=== PATIENT | male | born 1975 | race Caucasian/White ===

== ENCOUNTER 2022-07-03 08:49 | Day surgery (SDC) | payer BC ==
[2022-06-30 12:24] LABS: Absolute Lymphocytes (CBC) 2.7 K/uL (0.7-4.9); Hematocrit 39.3 % (39.6-49.0); Lymphocytes % 35.2 % (15.3-44.8); MCV 90.7 fL (80-100); MPV 7.5 fL (7.6-11.3); RBC Red Blood Cell Count 4.33 M/uL (4.33-5.43)
[2022-06-30 12:36] LABS: Potassium 4.1 mmol/L (3.5-5.1)
--- NOTE | 2022-06-30 12:42 | RAD REPORT ---
EXAM DESCRIPTION: Alissa De Paz And Lat (2 Views)06/30/2022 12:36 pm CLINICAL HISTORY: Preop for neck surgery. Lymphoma COMPARISON: None FINDINGS: The lungs appear clear of acute infiltrate. The heart is normal size IMPRESSION: No acute abnormalities displayed
[2022-07-03] MEDS ORDERED: CELECOXIB 100 MG CAPSULE ONE (09:19)
[2022-07-03] MEDS ORDERED: ACETAMINOPHEN 500 MG TAB ONE (09:19)
[2022-07-03] MEDS: Ringers Lactate 1,000 ML IV ONE ×2 (09:25→09:52)
[2022-07-03] MEDS: CEFAZOLIN SODIUM 1 GM/VIAL ONE ×2 (09:52→10:40)
[2022-07-03] MEDS ORDERED: MIDAZOLAM HCL 2 MG/2 ML INJ ONE (10:27)
[2022-07-03] MEDS ORDERED: LIDOCAINE 2% MPF 5 ML VIAL ONE (10:28)
[2022-07-03] MEDS ORDERED: propofoL 200 MG/20 ML VIAL IV ONE (10:28)
[2022-07-03] MEDS ORDERED: FENTANYL CITR 100 MCG/2 ML ONE (10:28)
[2022-07-03] MEDS ORDERED: KETOROLAC 30 MG/ML INJ ONE (10:29)
[2022-07-03] MEDS ORDERED: ONDANSETRON 4 MG/2 ML VIAL ONE (10:29)
[2022-07-03] MEDS ORDERED: GLYCOPYRROLATE 0.2 MG/ML SYR ONE ×2 (10:56→10:58)
--- NOTE | 2022-07-03 11:05 | P.BOP ---
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
--- NOTE | 2022-07-03 11:58 | OP ---
Date of Procedure: 07/03/2022 Surgeon: David Messina MD Preoperative Diagnosis: Tender, upper back, deep subcutaneous mass. Postoperative Diagnosis: Tender, upper back, deep subcutaneous mass. Procedure: Excisional biopsy, right upper back, tender, deep subcutaneous mass, 10 x 8 cm. Anesthesia: General plus local. Complications: None. Estimated Blood Loss: Less than 10 cc. Indications: This is the case of a male, who comes to us with a tender upper back mass, increasing i n size and discomfort. Patient wanted it excised. Benefits, alternatives, and risks of excision ful ly explained which include, but not limited to, infection, bleeding, damage to adjacent structures, a nesthesia complication, recurrence, OR, and even . He also understands this may not relieve any symptoms. He might need more than one surgical intervention. He understood, signed the consent. T he area of concern was marked by me and the patient in the holding room. Description Of The Procedure: The patient was brought to the operating room, placed in supine positi on. Anesthesia was done without complication. Right upper back was prepped and draped in the usual sterile fashion. Local anesthesia was applied followed by sharp incision of the skin. Incision was carried down to subcutaneous tissue and then we went even deeper subcutaneous tissue. Just on top of the muscle, there was this fatty tumor with multiple tentacles that we just have to go on by blunt d issection, trying to dissect that free to avoid leaving any piece behind. The mass was completely ex cised in one unit. Area was irrigated. Then, we proceeded to close this, after irrigation was done and hemostasis was obtained, we proceeded to do the deep subcutaneous tissue with 3-0 chromic, mid arellano bcutaneous tissue with 3-0 chromic, and then the skin in a subcuticular fashion with the 4-0 PDS. e patient tolerated the procedure well. Area was covered with Steri-Strips. Patient sent to Recover y in stable condition. KEAGAN/TRI Voice ID: [id number] Report ID: [id number]
--- NOTE | 2022-07-03 12:04 | DS ---
Diagnosis: Upper back subcutaneous mass. Procedure: Excisional biopsy of upper back subcutaneous mass. Disposition: Home. Activity: As tolerated. No heavy lifting. Follow Up: Follow up in the office. Call for appointment at [phone]. Discharge Instructions: Keep area dry for 48 hours, then may shower. Keep Steri-Strips intact. KEAGAN/TRI Voice ID: [id number] Report ID: [id number]
[2022-07-03 12:13] VITALS: BP 112/65; TEMP 96.9
== END 2022-07-03 12:19 | disposition home or self-care (01) ==
LOC: OR 08:49
PROVIDERS: ATTEND Surgery
PROC: 0JB70ZZ Excision of Back Subcutaneous Tissue and Fascia, Open Approach (ICD-10-PCS; principal; 2022-07-03 10:30)
DX: R22.2 Localized swelling, mass and lump, trunk (principal); I10 Essential (primary) hypertension; E78.00 Pure hypercholesterolemia, unspecified; I25.2 Old myocardial infarction; Z95.5 Presence of coronary angioplasty implant and graft
CPT/HCPCS: 93005; 85025; 80048; 36415; 88304; 71046; 11406; J2704; J2001; J2250; J3010; J7120; J2405; J0690